=== PATIENT | female | born 1960 | race Caucasian/White ===

== ENCOUNTER 2016-10-20 10:20 | Emergency (ER) ==
[2016-10-20] MEDS ORDERED: NS 1,000 ML IV ONE (11:17)
[2016-10-20] MEDS: D50W SYRINGE IV ONE ×2 (11:17→12:20)
[2016-10-20 11:48] LABS: MANUAL DIFF NEEDED? NO
[2016-10-20 11:51] LABS: BASO% 0.2 % (0.0-0.8); EOS# 0.27 X1000 (0.0-0.7); EOS% 1.7 % (0.0-10.0); HEMATOCRIT 37.4 % (37.0-47.0); HEMOGLOBIN 12.3 g/dL (12.0-16.0); IMM GRAN# 0.05 X1000 (0.0-0.04); IMM GRAN% 0.3 % (0.0-0.5); LYMPH# 4.72 X1000 (1.2-3.4); LYMPH% 29.2 % (20.5-51.1); MCH 29.9 PG (27-31); MCHC 32.9 g/dL (33-37); MONO# 1.03 X1000 (0.11-0.59); MONO% 6.4 % (1.7-9.3); MPV 10.3 FL (7.4-10.4); NEUT% 62.2 % (42.2-75.2); PLT 382 X1000 (130-400); RBC 4.11 XMIL (4.2-5.4)
--- NOTE | 2016-10-20 11:57 | PROVIDER DOCUMENTATION ---
HPI-General Adult - General Stated Complaint: Hypoglycemia Time Seen by Provider: 10/20/16 10:28 Source: patient, family, EMS Allergies/Adverse Reactions: Patient Allergies Allergy/AdvReac Type Severity Reaction Status Date / Time No Known Allergies Allergy Verified 10/20/16 12:16 Home Medications: Home Medication List Medication Instructions Recorded Confirmed Last Taken Type Atorvastatin Calcium [Lipitor] 80 mg PO DAILY 10/20/16 10/20/16 10/20/16 06:30 History Duloxetine [Cymbalta] 60 mg PO BID 10/20/16 10/20/16 10/20/16 06:30 History Insulin Aspart [Novolog] 8 unit SQ TID AC 10/20/16 10/20/16 10/20/16 06:30 History Insulin Glargine [Lantus] 20 unit SUBQ BID 10/20/16 10/20/16 10/20/16 06:30 History Losartan/Hydrochlorothiazide 1 each PO DAILY 10/20/16 10/20/16 10/20/16 06:30 History [Losartan-Hctz 100-25 mg Tab] Metformin HCl [Fortamet] 1,000 mg PO BID 10/20/16 10/20/16 10/20/16 06:30 History Oxycodone HCl/Acetaminophen 1 each PO Q4-6H PRN PRN 10/20/16 10/20/16 10/20/16 06:30 History [Percocet 5-325 mg Tablet] Ranitidine [Zantac] 150 mg PO DAILY 10/20/16 10/20/16 10/20/16 06:30 History - History of Present Illness -Gen Adult Nature of Presenting Problems: Pt is a 56 y/o F c chief complaint of hypoglycemia. Pt is a insulin dependent diabetic who also takes oral diabetes medications. She denies any overdose on oral or insulin. Pt states she ate a normal breakfast today. Pt had back surgery last week. She denies any complications to the surgery. At home, pt became lethargic and altered. Family checked her blood sugar and it was 30. She was given a candy bar. EMS was called. They gave her oral glucose due to poor vascular access. On arrival at the ER her fingerstick was 50 and she was alert and oriented x 3 but somnolent. Pt denies any pain or discomfort. Review of Systems - Adult - REVIEW OF SYSTEMS - ADULT Constitutional: reports: aramis. denies: chills Eyes: reports: no symptoms reported. denies: blurred vision, double vision Ears, Nose, Mouth & Throat: reports: no symptoms reported. denies: ear pain, nose pain, throat pain Cardiovascular: reports: no symptoms reported. denies: chest pain, orthopnea Respiratory: reports: no symptoms reported. denies: cough, shortness of breath , wheezing Gastrointestinal: reports: no symptoms reported. denies: abdominal pain, nausea Genitourinary: reports: no symptoms reported. denies: dysuria, flank pain Musculoskeletal: reports: no symptoms reported. denies: joint pain, joint swelling Integumentary: reports: no symptoms reported. denies: itching, rash Neurological: reports: no symptoms reported. denies: numbness, paresthesia Psychiatric: reports: no symptoms reported. denies: anxiety, emotional problems Endocrine: reports: no symptoms reported. denies: cold intolerance, heat intolerance Hematologic/Lymphatic: reports: no symptoms reported. denies: blood clots, low blood count Allergic/Immunologic: reports: no symptoms reported. denies: allergic reactions , food allergy All Other Systems: Reviewed and Negative Past History - Adult - PAST MEDICAL HISTORY-ADULT Review of Records: reports: Old Records Reviewed, Nursing Assessment Review, Medications Reviewed, Social history reviewed & non-contributory. Major Childhood Illnesses: reports: denies history Cardiovascular: reports: HTN Respiratory: reports: denies history Gastrointestinal: reports: denies history Obstetrical/Gynecological: reports: denies history Genitourinary: reports: denies history Musculoskeletal: reports: denies history Neurological: reports: denies history Endocrine/Immune: reports: Diabetes Other Conditions: reports: denies history - PRIOR SURGERIES/PROCEDURES Surgical/Procedure History: reports: cholecystectomy, BTL - IMMUNIZATION STATUS Childhood Immunizations: See Nurse Assessment Flu Vaccine: See Nurse Assessment - FAMILY HISTORY Family History: reviewed, not pertinent - SOCIAL HISTORY Smoking: denies Substance Use: none/never Alcohol Use Frequency: never Living Situation: family Physical Exam-General - PHYSICAL EXAM-ADULT Initial Vital Signs Reviewed: Yes - CONSTITUTIONAL General Appearance: appears well, alert, no apparent distress - EYES Eyes: PERRL/EOMI, pink conjunctivae, fundi clear, no AV nicking - HEAD, EARS, NOSE, MOUTH & THROAT HENMT: normocephalic/atraumatic, moist mucous membranes, normal ENT inspection - NECK Neck: non-tender, full range of motion, supple - RESPIRATORY Respiratory: chest non-tender, lungs clear, normal breath sounds - CARDIOVASCULAR Cardiovascular: normal peripheral pulses, regular rate, rhythm, no edema - GASTROINTESTINAL (ABDOMEN) Abdominal Exam: normal bowel sounds, non tender, soft - GENITOURINARY Female Genitalia/Pelvic Exam: deferred, external exam normal, speculum exam normal - LYMPHATIC Lymphatic: no adenopathy - MUSCULOSKELETAL Back Exam: normal inspection, no CVA tenderness, no vertebral tenderness Extremity: normal range of motion, non-tender - SKIN Integumentary: normal color, normal turgor, warm/dry - NEUROLOGIC Neurologic: grossly normal, no motor/sensory deficits - PSYCHIATRIC Psych/Mental Status: normal mood/affect, normal thought content, normal thought process, oriented x 3 Progress - PLAN OF CARE/RESULTS Progress/Plan/Lab Results: Orders Category Date Time Status Cardiac Monitoring DIRECTED Care 10/20/16 11:16 Active Finger Stick Blood Sugar (ED) DIRECTED Care 10/20/16 11:16 Active Finger Stick Blood Sugar (ED) DIRECTED Care 10/20/16 11:51 Active Oxygen Therapy- ED Nursing DIRECTED Care 10/20/16 11:16 Completed Saline Loc NOW Care 10/20/16 11:16 Active Regular Diet Diet 10/20/16 12:16 Active CBC WITH ELECTRONIC DIFF [HEME] Stat Lab 10/20/16 10:45 Completed COMPREHENSIVE METABOLIC PANEL [CHEM] Stat Lab 10/20/16 10:45 Completed PROTIME WITH INR [COAG] Stat Lab 10/20/16 10:45 Completed PTT [COAG] Stat Lab 10/20/16 10:45 Completed 0.9% Sodium Chloride Inj [Ns] 1,000 ml Med 10/20/16 11:17 Active IV 125 mls/hr Dextrose 50% Syringe [D50w Syringe] Med 10/20/16 11:17 Discontinued 50 ml IV NOW ONE Pulse Oximetry Stat Oth 10/20/16 11:16 Active Laboratory Tests 10/20/16 10/20/16 10/20/16 10:45 10:45 10:45 WBC 16.14 H RBC 4.11 L Hgb 12.3 Hct 37.4 MCV 91.0 MCH 29.9 MCHC 32.9 L RDW Std Deviation 13.3 Plt Count 382 MPV 10.3 Immature Gran % (Auto) 0.3 Neut % (Auto) 62.2 Lymph % (Auto) 29.2 [place] % (Auto) 6.4 Eos % (Auto) 1.7 Baso % (Auto) 0.2 Immature Gran # (Auto) 0.05 H Neut # (Auto) 10.03 H Lymph # (Auto) 4.72 H [place] # (Auto) 1.03 H Eos # (Auto) 0.27 Baso # (Auto) 0.04 PT 9.6 INR 0.91 PTT (Actin FS) 26.6 Sodium 141 Potassium 3.5 Chloride 97 L Carbon Dioxide 28 Anion Gap 16 BUN 23 H Creatinine 1.0 H Estimated GFR/1.73 m2 57 BUN/Creatinine Ratio 23 Glucose 60 L Calculated Osmolality 283 Calcium 8.4 L Total Bilirubin 0.20 AST 13 ALT 11 Alkaline Phosphatase 72 Total Protein 6.3 Albumin 3.3 L Globulin 3.0 Albumin/Globulin Ratio 1.1 Vital Signs - 24 hr 10/20/16 10/20/16 10/20/16 10:20 11:55 12:23 Temperature 97.8 F 97.7 F Pulse Rate 98 H 92 H 102 H Respiratory 14 17 17 Rate Blood Pressure 120/60 107/63 104/58 O2 Sat by Pulse 92 L 96 97 Oximetry 10/20/16 10/20/16 13:09 13:54 Temperature Pulse Rate 103 H 99 H Respiratory 16 26 H Rate Blood Pressure O2 Sat by Pulse 100 92 L Oximetry - REASSESSMENT Reassessment #1 Time Reassessed: 14:38 (Blood sugar 177. Pt is alert and oriented. She states she wants to go home. Pt's states she did not eat very much food this morning prior to insulin and has not been eating very much food since the spine surgery. Pt and agree to check blood sugar prior to insulin. ) Departure - Departure Time of Disposition Order: 14:37 DIAGNOSIS: Hypoglycemia due to insulin Leukocytosis Qualifiers: Leukocytosis type: unspecified Qualified Code(s): D72.829 - Elevated white blood cell count, unspecified Disposition: HOME 01 Certified Medical Emergency: Emergent Condition: Stable Additional Instructions: CHECK BLOOD SUGAR 3 TIMES DAILY FOR THE NEXT 5 DAYS. CHECK BLOOD SUGAR PRIOR TO INSULIN. FOLLOW UP WITH YOUR SPINE SURGEON AT YOUR SCHEDULED APPOINTMENT. ED Follow Up Instructions: You have been treated by a care provider in the Emergency Department. These instructions are being provided to you so you can have an understanding of how to care for yourself upon discharge. Upon discharge from the Emergency Department, you are responsible for making arrangements for follow-up care by a physician of your choice. Take all prescribed medications as directed. Return to the Emergency Department immediately for any new or worsening symptoms. You may call the Physician Referral phone number at [phone] to obtain a list of Physicians who are taking new patients. Referrals: None,PCP [Primary Care Provider] - Attestation - Physician/ MINERVA Attestation Patient care was provided by Advanced Practice Provider:: Yes Advanced Practice Provider:: Kumar Harkins Advanced Practice Provider documentation review:: The Mid-level provider documentation, treatment plan and medical decision making was reviewed by the physician who agrees with all treatment and medical decision making by the MLP.
[2016-10-20 12:04] LABS: INR 0.91; PROTIME 9.6 Seconds (9.2-11.7); PTT 26.6 Seconds (22.0-36.0)
[2016-10-20 12:06] LABS: ALBUMIN 3.3 g/dL (3.5-5.0); CALCIUM 8.4 mg/dL (8.8-10.2); POTASSIUM 3.5 mmol/L (3.5-5.1); TOTAL BILIRUBIN 0.2 mg/dL (0.20-1.00); TOTAL PROTEIN 6.3 g/dL (6.3-8.3)
[2016-10-20 12:23] VITALS: BP 104/58
== END 2016-10-20 14:49 | disposition home or self-care (01) ==
LOC: EDUNIT# → EDBD → ED 10:20
DX: E09.649 Drug or chemical induced diabetes mellitus with hypoglycemia without coma (principal); T38.3X5A Adverse effect of insulin and oral hypoglycemic [antidiabetic] drugs, initial encounter; D72.829 Elevated white blood cell count, unspecified; R53.83 Other fatigue; I10 Essential (primary) hypertension; Z79.899 Other long term (current) drug therapy; Z79.4 Long term (current) use of insulin
CPT/HCPCS: 80053; 82948; 85025; 85610; 85730; J7030